=== PATIENT | female | born 1990 | race Caucasian/White ===

== ENCOUNTER 2016-08-11 05:31 | Day surgery (SDC) | payer BC ==
[2016-08-11] MEDS ORDERED: NORCO 5-325 TA1 EACH PO (05:43)
== END 2016-08-11 10:45 ==
LOC: EDMED 05:31 → SRG 07:17 → PACU 07:30 → CAR1 08:10
PROC: 0W330ZZ Control Bleeding in Oral Cavity and Throat, Open Approach (ICD-10-PCS; principal; 2016-08-11)
DX: J95.830 Postprocedural hemorrhage of a respiratory system organ or structure following a respiratory system procedure (principal); Z98.890 Other specified postprocedural states
CPT/HCPCS: J2405; J3010; J7030